=== PATIENT | male | born 1930 | race Caucasian/White ===

== ENCOUNTER 2016-02-27 10:00 | Emergency (ER) | payer MEDICARE ==
[2015-05-31 11:31] VITALS: BMI 40.1
[~2016-02-27 10:00] MED LIST: ADVIL100 M1 PO; BAYER CHEWABLE81 MG PO; DUTOPROL 50-121 EACH PO; GABAPENTIN100 MG PO; GLUCOPHAGE1000 MG PO; LASIX20 MG PO; PROSCAR5 MG PO; TRAZODONE HCL50 MG PO; ZESTORETIC 20/21 TAB PO
[2016-02-27 10:51] LABS: ALBUMIN 3.6 g/dL (3.4-5.0); ANION GAP 11.6 mmol/L (8-16); BASOPHILS 0.2 % (0.0-2.0); BILIRUBIN - TOTAL 0.7 mg/dL (0.2-1.3); CALCIUM 8.8 mg/dL (8.5-10.1); CARBON DIOXIDE 30.1 mmol/L (21.0-32.0); CREATININE - SERUM 1.3 mg/dL (0.6-1.3); EOSINOPHILS 0.7 % (0-7); HEMATOCRIT 37.1 % (42.0-54.0); HEMOGLOBIN 11.9 g/dL (13.5-17.5); IMMATURE GRANULOCYTES 0.2 % (0-5); LYMPHOCYTES 13.4 % (15-50); MCH 25.8 pg (26.0-34.0); MCHC 32.1 g/dL (31.0-37.0); MCV 80.3 fL (80.0-100.0); MEAN PLATELET VOLUME 10.7 fL (7.4-10.4); MONOCYTES 9.3 % (2-11); NEUTROPHILS 76.2 % (40-80); PLATELET COUNT 235 10x3/uL (130-400); POTASSIUM - SERUM 3.7 mmol/L (3.5-5.1); PROTEIN - SERUM 7.4 g/dL (6.4-8.2); RBC 4.62 10x6/uL (4.20-6.10); RDW 15.3 % (11.5-14.5)
== END 2016-02-27 13:01 ==
LOC: D.ER 10:00
PROVIDERS: Emergency Medicine
DX: J44.1 Chronic obstructive pulmonary disease with (acute) exacerbation (principal); J20.9 Acute bronchitis, unspecified; E11.9 Type 2 diabetes mellitus without complications; K21.9 Gastro-esophageal reflux disease without esophagitis; N18.9 Chronic kidney disease, unspecified; I12.9 Hypertensive chronic kidney disease with stage 1 through stage 4 chronic kidney disease, or unspecified chronic kidney disease; F17.200 Nicotine dependence, unspecified, uncomplicated

== ENCOUNTER 2017-07-07 13:07 | Inpatient (IN) | payer MEDICARE ==
[2017-07-07] VITALS (14 sets, daily range): BP systolic 53–136; BP diastolic 34–97
[~2017-07-07] VITALS: Ht 172.7 cm; Wt 129.9 kg
--- NOTE | ~2017-07-07 | OP ---
PATIENT NAME: TALI SHEIKH MEDICAL RECORD: [id number] :30 LOCATION:[facility] D.2307 ADMISSION DATE:07/07/17 SURGEON: YARELY ROAMN MD DATE OF OPERATION: 07/15/2017 PROCEDURE: Fiberoptic bronchoscopy. INDICATION: Mr. Sheikh is an 87-year-old gentleman who is status post cardiopulmonary arrest. Pneumonia. The patient had copious secretion yesterday and fibrotic bronchoscopy was carried out to inspect the airway for any mucus plugging and get specimen for culture and sensitivity. PROCEDURE: The fiberoptic bronchoscope was easily passed through the ET tube. The ramone was sharp. The right main bronchus was normal. The subsegment to the right upper lobe, right lower lobe, and right middle lobe within normal range. There was no endobronchial lesion seen. There were bronchitic changes that bled easily by touching by the bronchoscope when the patient was coughing. The left main bronchus was normal. The subsegment to the left upper lobe, lingula, left lower lobe within normal range. No endobronchial lesion was seen. There was also pluss-eo-vxbfqdkhp secretion. Specimen washing was obtained and sent for routine culture and sensitivity, AFB, fungus, and cytology. Overall, the patient tolerated procedure very well. MONITORING: EKG, pulse, blood pressure, SpO2 were monitored throughout the procedure. TRANSINT:[id number] Voice Confirmation ID: [id number] DOCUMENT ID: [id number] YARELY ROMAN MD at 1806 CC: [id number] DICTATION DATE: 07/15/17 1352 MECHANISM INSPECTOR: 07/15/17 1443 DIS IN 07/17/17 [address] [place] [address]
--- NOTE | ~2017-07-07 | CN ---
PATIENT NAME:TALI SHEIKH MEDICAL RECORD: [id number] : 30 LOCATION:[facility] ADMIT DATE: 07/07/17 ACCOUNT: [id number] CONSULTING PHYSICIAN: YARELY ROMAN MD REFERRING PHYSICIAN: GURWINDER GRAY MD DATE OF CONSULTATION: 07/08/2017 CONSULT REQUESTING PHYSICIAN: Gurwinder Gray MD REASON FOR CONSULTATION: Vent management. HISTORY OF PRESENT ILLNESS: Mr. Sheikh is an 87-year-old gentleman. He was admitted yesterday with acute shortness of breath, found out to be in atrial fibrillation with RVR as well as hemoglobin of 4.4. The patient was transfused with PRBC and while in the ICU, the patient coded twice and he was made DNR. Early this morning, I was called by Dr. Oquendo that patient has a large left pneumothorax. The patient was orally intubated, unresponsive and no family member available to talk. The history was taken mainly by reviewing the patient's note and talking to the nursing staff. REVIEW OF SYSTEMS: Not obtainable. PAST MEDICAL HISTORY: 1. History of TIA and neuropathy. 2. Diabetes mellitus type 2. 3. Hypertension. 4. Allergies. PAST SURGICAL HISTORY: 1. Right knee replacement. 2. Shoulder replacement surgery. ALLERGIES: No known drug allergy. MEDICATIONS: On [employer] is reviewed. PERSONAL AND SOCIAL HISTORY: He is a nondrinker. The smoking history is not known. FAMILY HISTORY: Noncontributory. PHYSICAL EXAMINATION: GENERAL: Now, the patient is orally intubated and unresponsive. VITAL SIGNS: The blood pressure is 137/75, pulse is 91, respiration is 16, temperature is 98.1, SpO2 is 98% on SIMV. HEENT: Conjunctiva is pale. Sclerae not icteric. NECK: Supple. There is no JVD. CHEST: There is a left-sided chest tube in place. There are crackles bilaterally. There is subcutaneous emphysema. HEART: Rate and rhythm regular, normal sound, no murmur. ABDOMEN: Soft. Bowel sounds are muffled. RECTAL: Deferred. EXTREMITIES: No cyanosis, no clubbing. There is 1+ pedal edema. SKIN: Warm, normal. CENTRAL NERVOUS SYSTEM: The pupil is pinpoint, the right pupil. The left is 3 CONSULT REPORT [id number] TALI SHEIKH mm and nonreactive to light. The patient does not respond to any verbal stimuli. He is not moving any extremities to painful stimuli. CHEST RADIOGRAPH: There is a large left pneumothorax, but the ET tube is in good position. LABORATORY DATA: CBC: The WBC is 17.7, hemoglobin 12.4 post-transfusion, on admission hemoglobin was 4.4, hematocrit is 37 and the platelet count is 337. Chemistry: Sodium 137, potassium is 4.1, BUN is 27, creatinine is 1.6, it has gone worse to BUN of 40, creatinine 2.3. ABG: The pH is 7.43, pCO2 is 19.2, pO2 is 23, bicarbonate is 12.9, it improved to a bicarbonate of 22.6. The lactic acid 2.51, INR is 1.41. IMPRESSION: 1. Acute hypoxic hypercapnic respiratory failure, which is multifactorial, status post cardiopulmonary arrest times 2. 2. Metabolic acidosis with lactic acidosis. 3. Large left pneumothorax with spontaneous most likely during the resuscitation. 4. Severe microcytic anemia secondary to GI bleed. 5. Atrial fibrillation. 6. Rkpsl-rp-dsbrwfb renal failure secondary to acute tubular necrosis. 7. CHF with elevated proBNP. RECOMMENDATION: 1. Continue mechanical ventilation. We will change the mode to SIMV and remove the PEEP. 2. GI bleed and DVT prophylaxis. 3. Empiric antibiotic. 4. Albuterol ipratropium nebulizer. 5. Follow up labs and chest radiograph. 6. Left-sided chest tube placement by IR. The prognosis is guarded. We will repeat the CT scan of the head tomorrow if the patient is not waking up. Dr. Gray, thank you for involving me in the care of Mr. Sheikh. The critical care time is 50 minutes. TRANSINT:[id number] Voice Confirmation ID: [id number] DOCUMENT ID: [id number] YARELY ROMAN MD at 1806 CC: [id number] DICTATION DATE: 07/08/17 1244 MUD CLEANER OPERATOR: 07/08/17 1315 DIS IN 07/17/17 [place] [id number]
--- NOTE | ~2017-07-07 | CN ---
PATIENT NAME:TALI LOPEZ MEDICAL RECORD: [id number] : 30 LOCATION:[facility]2307 ADMIT DATE: 07/07/17 ACCOUNT: [id number] CONSULTING PHYSICIAN: JANY BRYAN MD REFERRING PHYSICIAN: GURWINDER OQUENDO MD DATE OF CONSULTATION: 07/17/2017 CARDIOLOGY CONSULTATION DIAGNOSES: 1. Anemia. 2. Gastrointestinal bleed. 3. Hypovolemic shock. 4. Tachycardia. HISTORY OF PRESENT ILLNESS: This is a gentleman who presents with a GI bleed. He is having hypovolemic shock. He is on multiple pressors. His heart rate has gone up to 160. This is sinus tachycardia. He has no EKG changes with this. He continues to have the bleed and this is from an ulcer that cannot be treated. He does have a history of atrial fibrillation for which he is in sinus rhythm now. PHYSICAL EXAMINATION: GENERAL: The patient is intubated and sedated, somewhat restless. CARDIOVASCULAR: Tachycardic, irregular. Normal S1, normal S2. No S3, no S4. No murmurs. LUNGS: Overall, clear to auscultation and percussion. EXTREMITIES: Cool. Hypoperfused. No edema. OVERALL IMPRESSION: Sinus tachycardia, normal physiologic response to the severe hypovolemic shock and anemia. No other cardiac workup treatment is necessary. TRANSINT:[id number] Voice Confirmation ID: [id number] DOCUMENT ID: [id number] JANY BRYAN MD at 2248 CC: [id number] DICTATION DATE: 07/17/17 1643 DIVORCE LAWYER: 07/17/17 1824 DIS IN 07/17/17 [facility] [address] [place] [address]
[2017-07-07 13:52] LABS: BASOPHILS 0.1 % (0-2); EOSINOPHILS 0.1 % (0-7); IMMATURE GRANULOCYTES 0.4 % (0-5); LYMPHOCYTES 6.3 % (15-50); MCHC 30.3 g/dL (31.0-37.0); MCV 72.5 fL (80.0-100.0); MEAN PLATELET VOLUME 9.6 fL (7.4-10.4); MONOCYTES 5.9 % (2-11); NEUTROPHILS 87.2 % (40-80); RDW 17.5 % (11.5-14.5); WBC 13.8 10x3/uL (4.8-10.8)
[2017-07-07 13:54] LABS: PLATELET COUNT 337 10x3/uL (130-400)
[2017-07-07 13:56] LABS: HEMATOCRIT 14.5 % (42.0-54.0); HEMOGLOBIN 4.4 g/dL (13.5-17.5)
[2017-07-07 14:03] LABS: ALBUMIN 2.4 g/dL (3.4-5.0); ALKALINE PHOSPHATASE 51 U/L (46-116); ALT (SGPT) 21 U/L (10-68); BILIRUBIN - TOTAL 0.36 mg/dL (0.2-1.3); CALC OSMOLALITY 285 mosm/kg (275-300); CALCIUM 7.6 mg/dL (8.5-10.1); CHLORIDE - SERUM 103 mmol/L (98-107); CREATININE - SERUM 1.6 mg/dL (0.6-1.3); GLUCOSE 224 mg/dL (74-106); POTASSIUM - SERUM 4.1 mmol/L (3.5-5.1); PROTEIN - SERUM 5.5 g/dL (6.4-8.2); SODIUM 137 mmol/L (136-145); UREA NITROGEN 27 mg/dL (7-18); eGFR NON AFRICAN AMERICAN 44 mL/min (90-120)
[2017-07-07 14:11] LABS: CREATINE KINASE 85 UL (21-232); MAGNESIUM - SERUM 1.8 mg/dL (1.8-2.4); PRO BNP 1558 pg/mL (0-450)
[2017-07-07 14:12] LABS: TROPONIN-I < 0.017 ng/mL (0.000-0.060)
[2017-07-07 14:21] LABS: APTT 22.7 SECONDS (22.8-39.4); INR 1.27 (0.85-1.17); PROTIME 15.4 SECONDS (11.6-15.0)
[2017-07-07 15:50] LABS: APPEARANCE CLEAR (CLEAR); BILIRUBIN NEGATIVE (NEGATIVE); COLOR YELLOW (YELLOW); GLUCOSE 100 mg/dL (NEGATIVE); KETONE NEGATIVE (NEGATIVE); NITRITE NEGATIVE (NEGATIVE); PROTEIN NEGATIVE (NEGATIVE); SPECIFIC GRAVITY 1.025 (1.005-1.020); UROBILINOGEN NORMAL (NORMAL)
[2017-07-07 23:51] LABS: HEMATOCRIT 37.2 % (42.0-54.0); HEMOGLOBIN 12.5 g/dL (13.5-17.5)
[2017-07-08] VITALS (51 sets, daily range): BP systolic 85–160; BP diastolic 44–95; BMI 38.7; BMI 39.3
[2017-07-08 05:17] LABS: BASOPHILS 0.1 % (0-2); EOSINOPHILS 0 % (0-7); IMMATURE GRANULOCYTES 0.6 % (0-5); LYMPHOCYTES 7.8 % (15-50); MCH 27.4 pg (26.0-34.0); MEAN PLATELET VOLUME 9.2 fL (7.4-10.4); MONOCYTES 7.6 % (2-11); NEUTROPHILS 83.9 % (40-80); RDW 16.7 % (11.5-14.5)
[2017-07-08 05:19] LABS: HEMOGLOBIN 9.9 g/dL (13.5-17.5); MCV 83.1 fL (80.0-100.0); PLATELET COUNT 143 10x3/uL (130-400); RBC 3.61 10x6/uL (4.20-6.10); WBC 17.7 10x3/uL (4.8-10.8)
[2017-07-08 05:26] LABS: INR 1.41 (0.85-1.17); PROTIME 16.8 SECONDS (11.6-15.0)
[2017-07-08 05:34] LABS: % SATURATION 7 % (15-55); IRON 19 ug/dl (35-150); TOTAL IRON BIND CAPACITY 264 ug/dl (260-445); UNSAT IRON BIND CAPACITY 245 ug/dl (150-375)
[2017-07-08 05:52] LABS: ALBUMIN 2.3 g/dL (3.4-5.0); BILIRUBIN - TOTAL 0.77 mg/dL (0.2-1.3); POTASSIUM - SERUM 4.1 mmol/L (3.5-5.1)
[2017-07-08 05:54] LABS: ANION GAP 14.8 mmol/L (8-16); CARBON DIOXIDE 26.3 mmol/L (21.0-32.0); CREATININE - SERUM 2.3 mg/dL (0.6-1.3)
[2017-07-08 18:24] LABS: HEMATOCRIT 25.5 % (42.0-54.0); HEMOGLOBIN 8.5 g/dL (13.5-17.5)
[2017-07-08 22:35] LABS: HEMATOCRIT 27.5 % (42.0-54.0); HEMOGLOBIN 9.3 g/dL (13.5-17.5)
[2017-07-09] VITALS (26 sets, daily range): BP systolic 85–174; BP diastolic 55–98; Ht 172.7 cm; Wt 129.9 kg
[2017-07-09 04:28] LABS: BASOPHILS 0.1 % (0-2); EOSINOPHILS 0 % (0-7); HEMATOCRIT 27.9 % (42.0-54.0); HEMOGLOBIN 9.3 g/dL (13.5-17.5); IMMATURE GRANULOCYTES 0.4 % (0-5); LYMPHOCYTES 6.6 % (15-50); MCH 27.8 pg (26.0-34.0); MCHC 33.3 g/dL (31.0-37.0); MCV 83.3 fL (80.0-100.0); MEAN PLATELET VOLUME 9.3 fL (7.4-10.4); MONOCYTES 11.1 % (2-11); NEUTROPHILS 81.8 % (40-80); PLATELET COUNT 129 10x3/uL (130-400); RBC 3.35 10x6/uL (4.20-6.10); RDW 17.7 % (11.5-14.5); WBC 12.9 10x3/uL (4.8-10.8)
[2017-07-09 04:55] LABS: ALBUMIN 2.1 g/dL (3.4-5.0); ANION GAP 17.7 mmol/L (8-16); BILIRUBIN - TOTAL 0.57 mg/dL (0.2-1.3); CARBON DIOXIDE 22.1 mmol/L (21.0-32.0); POTASSIUM - SERUM 3.8 mmol/L (3.5-5.1); PROTEIN - SERUM 5.1 g/dL (6.4-8.2)
[2017-07-09 05:01] LABS: CALCIUM 6.9 mg/dL (8.5-10.1); CREATININE - SERUM 3.7 mg/dL (0.6-1.3)
[2017-07-09 09:46] LABS: FOLATE (FOLIC ACID) - SERUM 10.9 ng/mL (>3.0)
[2017-07-09 15:25] LABS: HEMATOCRIT 25.7 % (42.0-54.0); HEMOGLOBIN 8.6 g/dL (13.5-17.5)
[2017-07-09 22:05] LABS: HEMATOCRIT 27.9 % (42.0-54.0); HEMOGLOBIN 9.3 g/dL (13.5-17.5)
[2017-07-10] VITALS (24 sets, daily range): BP systolic 121–155; BP diastolic 68–94
[2017-07-10 03:53] LABS: BASOPHILS 0.1 % (0-2); EOSINOPHILS 0.3 % (0-7); HEMATOCRIT 28.2 % (42.0-54.0); HEMOGLOBIN 9.4 g/dL (13.5-17.5); IMMATURE GRANULOCYTES 1.2 % (0-5); LYMPHOCYTES 8.9 % (15-50); MCH 28.1 pg (26.0-34.0); MCHC 33.3 g/dL (31.0-37.0); MCV 84.2 fL (80.0-100.0); MEAN PLATELET VOLUME 9.6 fL (7.4-10.4); MONOCYTES 12.1 % (2-11); NEUTROPHILS 77.4 % (40-80); PLATELET COUNT 116 10x3/uL (130-400); RBC 3.35 10x6/uL (4.20-6.10); RDW 17.7 % (11.5-14.5); WBC 11.8 10x3/uL (4.8-10.8)
[2017-07-10 04:02] LABS: ALBUMIN 1.9 g/dL (3.4-5.0); ANION GAP 15.6 mmol/L (8-16); BILIRUBIN - TOTAL 0.68 mg/dL (0.2-1.3); CARBON DIOXIDE 23.8 mmol/L (21.0-32.0); POTASSIUM - SERUM 3.4 mmol/L (3.5-5.1); PROTEIN - SERUM 4.9 g/dL (6.4-8.2)
[2017-07-10 04:10] LABS: CALCIUM 6.9 mg/dL (8.5-10.1)
[2017-07-10 14:41] LABS: HEMATOCRIT 28.6 % (42.0-54.0); HEMOGLOBIN 9.2 g/dL (13.5-17.5)
[2017-07-10 22:39] LABS: HEMATOCRIT 28.5 % (42.0-54.0); HEMOGLOBIN 9.5 g/dL (13.5-17.5)
[2017-07-11] VITALS (24 sets, daily range): BP systolic 117–156; BP diastolic 61–88
[2017-07-11 05:46] LABS: BASOPHILS 0.1 % (0-2); HEMATOCRIT 27.3 % (42.0-54.0); HEMOGLOBIN 8.9 g/dL (13.5-17.5); IMMATURE GRANULOCYTES 1.1 % (0-5); MCH 27.7 pg (26.0-34.0); MCHC 32.6 g/dL (31.0-37.0); MEAN PLATELET VOLUME 9.1 fL (7.4-10.4); NEUTROPHILS 81.8 % (40-80); PLATELET COUNT 108 10x3/uL (130-400); RBC 3.21 10x6/uL (4.20-6.10); RDW 18.1 % (11.5-14.5); WBC 10.2 10x3/uL (4.8-10.8)
[2017-07-11 05:51] LABS: ANION GAP 19.7 mmol/L (8-16); BILIRUBIN - TOTAL 0.66 mg/dL (0.2-1.3); CARBON DIOXIDE 19.5 mmol/L (21.0-32.0); CREATININE - SERUM 3.8 mg/dL (0.6-1.3); POTASSIUM - SERUM 4.2 mmol/L (3.5-5.1); PROTEIN - SERUM 4.3 g/dL (6.4-8.2)
[2017-07-11 06:00] LABS: CALCIUM 6.7 mg/dL (8.5-10.1)
[2017-07-11 07:51] LABS: MAGNESIUM - SERUM 1.9 mg/dL (1.8-2.4); PHOSPHOROUS 4.7 mg/dL (2.5-4.9)
[2017-07-11 15:21] LABS: HEMATOCRIT 28.1 % (42.0-54.0); HEMOGLOBIN 9.1 g/dL (13.5-17.5)
[2017-07-11 22:47] LABS: HEMATOCRIT 28.7 % (42.0-54.0); HEMOGLOBIN 9.3 g/dL (13.5-17.5)
[2017-07-12] VITALS (24 sets, daily range): BP systolic 124–148; BP diastolic 65–83
[2017-07-12 05:02] LABS: BASOPHILS 0.1 % (0-2); EOSINOPHILS 3.2 % (0-7); HEMATOCRIT 28.7 % (42.0-54.0); HEMOGLOBIN 9.3 g/dL (13.5-17.5); IMMATURE GRANULOCYTES 1.9 % (0-5); LYMPHOCYTES 8.3 % (15-50); MCH 27.5 pg (26.0-34.0); MCHC 32.4 g/dL (31.0-37.0); MCV 84.9 fL (80.0-100.0); MEAN PLATELET VOLUME 9.6 fL (7.4-10.4); MONOCYTES 10.1 % (2-11); NEUTROPHILS 76.4 % (40-80); PLATELET COUNT 121 10x3/uL (130-400); RBC 3.38 10x6/uL (4.20-6.10); RDW 18.1 % (11.5-14.5); WBC 10.6 10x3/uL (4.8-10.8)
[2017-07-12 05:15] LABS: INR 1.14 (0.85-1.17); PROTIME 14.2 SECONDS (11.6-15.0)
[2017-07-12 05:18] LABS: ANION GAP 14.1 mmol/L (8-16); BILIRUBIN - TOTAL 0.7 mg/dL (0.2-1.3); CREATININE - SERUM 3.5 mg/dL (0.6-1.3); POTASSIUM - SERUM 4.1 mmol/L (3.5-5.1); PROTEIN - SERUM 4.9 g/dL (6.4-8.2)
[2017-07-12 13:31] LABS: HEMATOCRIT 26.2 % (42.0-54.0); HEMOGLOBIN 8.7 g/dL (13.5-17.5)
[2017-07-12 14:49] LABS: HEMOGLOBIN 9.5 g/dL (13.5-17.5)
[2017-07-13] VITALS (24 sets, daily range): BP systolic 124–147; BP diastolic 62–76
[2017-07-13 04:17] LABS: BASOPHILS 0.2 % (0-2); EOSINOPHILS 3.3 % (0-7); HEMATOCRIT 28.6 % (42.0-54.0); HEMOGLOBIN 9.4 g/dL (13.5-17.5); IMMATURE GRANULOCYTES 2.3 % (0-5); LYMPHOCYTES 7.7 % (15-50); MCHC 32.9 g/dL (31.0-37.0); MCV 85.1 fL (80.0-100.0); MEAN PLATELET VOLUME 9.4 fL (7.4-10.4); MONOCYTES 9.1 % (2-11); NEUTROPHILS 77.4 % (40-80); PLATELET COUNT 140 10x3/uL (130-400); RBC 3.36 10x6/uL (4.20-6.10); WBC 10.5 10x3/uL (4.8-10.8)
[2017-07-13 04:32] LABS: CALCIUM 7.1 mg/dL (8.5-10.1); CARBON DIOXIDE 21.9 mmol/L (21.0-32.0); CREATININE - SERUM 3.5 mg/dL (0.6-1.3); POTASSIUM - SERUM 3.9 mmol/L (3.5-5.1)
[2017-07-13 11:30] LABS: HEMATOCRIT 29.1 % (42.0-54.0); HEMOGLOBIN 9.6 g/dL (13.5-17.5)
[2017-07-14] VITALS (24 sets, daily range): BP systolic 107–148; BP diastolic 58–80
[2017-07-14 05:10] LABS: ANION GAP 15.8 mmol/L (8-16); CALCIUM 7.5 mg/dL (8.5-10.1); CARBON DIOXIDE 21.9 mmol/L (21.0-32.0); CREATININE - SERUM 3.3 mg/dL (0.6-1.3); POTASSIUM - SERUM 3.7 mmol/L (3.5-5.1)
[2017-07-14 06:11] LABS: BASOPHILS 0.1 % (0-2); EOSINOPHILS 2.7 % (0-7); HEMATOCRIT 30.4 % (42.0-54.0); HEMOGLOBIN 9.9 g/dL (13.5-17.5); IMMATURE GRANULOCYTES 2.1 % (0-5); LYMPHOCYTES 7.7 % (15-50); MCH 27.7 pg (26.0-34.0); MCHC 32.6 g/dL (31.0-37.0); MCV 84.9 fL (80.0-100.0); MEAN PLATELET VOLUME 9.6 fL (7.4-10.4); MONOCYTES 9.4 % (2-11); PLATELET COUNT 162 10x3/uL (130-400); RBC 3.58 10x6/uL (4.20-6.10); RDW 17.8 % (11.5-14.5); WBC 10.2 10x3/uL (4.8-10.8)
[2017-07-15] VITALS (30 sets, daily range): BP systolic 74–144; BP diastolic 45–81
[2017-07-15 04:47] LABS: BASOPHILS 0.1 % (0-2); EOSINOPHILS 2.1 % (0-7); HEMATOCRIT 29.6 % (42.0-54.0); HEMOGLOBIN 9.7 g/dL (13.5-17.5); IMMATURE GRANULOCYTES 1.9 % (0-5); LYMPHOCYTES 8.7 % (15-50); MCH 27.8 pg (26.0-34.0); MCHC 32.8 g/dL (31.0-37.0); MCV 84.8 fL (80.0-100.0); MEAN PLATELET VOLUME 9.7 fL (7.4-10.4); MONOCYTES 8.3 % (2-11); NEUTROPHILS 78.9 % (40-80); PLATELET COUNT 185 10x3/uL (130-400); RBC 3.49 10x6/uL (4.20-6.10); RDW 17.9 % (11.5-14.5); WBC 9.8 10x3/uL (4.8-10.8)
[2017-07-15 05:10] LABS: ANION GAP 15.1 mmol/L (8-16); CALCIUM 7.4 mg/dL (8.5-10.1); CARBON DIOXIDE 20.5 mmol/L (21.0-32.0); CREATININE - SERUM 3.1 mg/dL (0.6-1.3); POTASSIUM - SERUM 3.6 mmol/L (3.5-5.1)
[2017-07-16] VITALS (38 sets, daily range): BP systolic 94–149; BP diastolic 53–95
[2017-07-16 06:32] LABS: BASOPHILS 0.1 % (0-2); EOSINOPHILS 0.2 % (0-7); IMMATURE GRANULOCYTES 1.1 % (0-5); LYMPHOCYTES 7.5 % (15-50); MCH 27.6 pg (26.0-34.0); MCHC 32.4 g/dL (31.0-37.0); MEAN PLATELET VOLUME 9.7 fL (7.4-10.4); MONOCYTES 8.2 % (2-11); NEUTROPHILS 82.9 % (40-80); RDW 18.4 % (11.5-14.5); WBC 10.5 10x3/uL (4.8-10.8)
[2017-07-16 06:36] LABS: ANION GAP 15.5 mmol/L (8-16); CALCIUM 7.2 mg/dL (8.5-10.1); CARBON DIOXIDE 20.4 mmol/L (21.0-32.0); CREATININE - SERUM 3.1 mg/dL (0.6-1.3); POTASSIUM - SERUM 3.9 mmol/L (3.5-5.1)
[2017-07-16 07:04] LABS: HEMATOCRIT 21.6 % (42.0-54.0); PLATELET COUNT 255 10x3/uL (130-400); RBC 2.54 10x6/uL (4.20-6.10)
[2017-07-16 21:08] LABS: AFB SPECIMEN PROCESSING Concentration (())
[2017-07-16 21:57] LABS: HEMATOCRIT 27.4 % (42.0-54.0); HEMOGLOBIN 8.8 g/dL (13.5-17.5)
[2017-07-17] VITALS (25 sets, daily range): BP systolic 51–154; BP diastolic 0–81
[2017-07-17 04:31] LABS: BASOPHILS 0.2 % (0-2); EOSINOPHILS 0.2 % (0-7); HEMATOCRIT 26.9 % (42.0-54.0); HEMOGLOBIN 8.8 g/dL (13.5-17.5); LYMPHOCYTES 8.4 % (15-50); MCH 27.1 pg (26.0-34.0); MCHC 32.7 g/dL (31.0-37.0); MCV 82.8 fL (80.0-100.0); MEAN PLATELET VOLUME 9.4 fL (7.4-10.4); NEUTROPHILS 79.2 % (40-80); PLATELET COUNT 229 10x3/uL (130-400); RBC 3.25 10x6/uL (4.20-6.10); RDW 17.4 % (11.5-14.5); WBC 9.8 10x3/uL (4.8-10.8)
[2017-07-17 04:43] LABS: ANION GAP 14.9 mmol/L (8-16); CALCIUM 7.6 mg/dL (8.5-10.1); CARBON DIOXIDE 23.1 mmol/L (21.0-32.0); CREATININE - SERUM 3.2 mg/dL (0.6-1.3)
[2017-07-17 05:41] LABS: HEMATOCRIT 27.6 % (42.0-54.0); HEMOGLOBIN 9.1 g/dL (13.5-17.5)
[2017-07-17 08:38] LABS: PHOSPHOROUS 4.7 mg/dL (2.5-4.9)
[2017-07-17 10:40] LABS: HEMATOCRIT 27.1 % (42.0-54.0); HEMOGLOBIN 8.9 g/dL (13.5-17.5)
[2017-07-17 13:17] LABS: FUNGUS STAIN Final report (())
[2017-07-17 15:26] LABS: BASOPHILS 0.2 % (0-2); EOSINOPHILS 0.3 % (0-7); HEMATOCRIT 23.1 % (42.0-54.0); IMMATURE GRANULOCYTES 0.6 % (0-5); LYMPHOCYTES 13.9 % (15-50); MCH 27.6 pg (26.0-34.0); MCHC 32.5 g/dL (31.0-37.0); MEAN PLATELET VOLUME 9.7 fL (7.4-10.4); MONOCYTES 8.6 % (2-11); NEUTROPHILS 76.4 % (40-80); RBC 2.72 10x6/uL (4.20-6.10); RDW 18.1 % (11.5-14.5); WBC 13.9 10x3/uL (4.8-10.8)
[2017-07-17 15:27] LABS: HEMOGLOBIN 7.5 g/dL (13.5-17.5); MCV 84.9 fL (80.0-100.0); PLATELET COUNT 299 10x3/uL (130-400)
[2017-07-17 15:37] LABS: ANION GAP 16.7 mmol/L (8-16); CALCIUM 7.1 mg/dL (8.5-10.1); CARBON DIOXIDE 20.6 mmol/L (21.0-32.0); CREATININE - SERUM 3.1 mg/dL (0.6-1.3); POTASSIUM - SERUM 4.3 mmol/L (3.5-5.1)
[2017-07-17 16:10] LABS: APTT 29.9 SECONDS (22.8-39.4); INR 1.5 (0.85-1.17); PROTIME 17.6 SECONDS (11.6-15.0)
[2017-07-17 16:20] LABS: HEMATOCRIT 32.5 % (42.0-54.0); HEMOGLOBIN 10.5 g/dL (13.5-17.5)
[2017-07-22 14:24] LABS: FUNGUS CULTURE RESULT 1 Candida albicans (())
[2017-08-12 06:15] LABS: FUNGUS MYCOLOGY CULTURE Final report (())
[2017-09-04 13:20] LABS: ACID FAST CULTURE Negative (()); ACID FAST SMEAR Negative (())
== END 2017-07-17 18:15 | disposition hospice, inpatient (51) | DRG 207 ==
LOC: D.ER 13:07 → D.ICU 17:01 → D.MS 17:01 → D.ICU 19:34
PROVIDERS: Family Medicine; Internal Medicine Gastroenterology; Internal Medicine Nephrology; Internal Medicine Pulmonary Disease
PROC: 0BH17EZ Insertion of Endotracheal Airway into Trachea, Via Natural or Artificial Opening (ICD-10-PCS; 2017-07-07)
PROC: 5A1955Z Respiratory Ventilation, Greater than 96 Consecutive Hours (ICD-10-PCS; 2017-07-07)
PROC: 0W9B30Z Drainage of Left Pleural Cavity with Drainage Device, Percutaneous Approach (ICD-10-PCS; 2017-07-07)
PROC: 05HY33Z Insertion of Infusion Device into Upper Vein, Percutaneous Approach (ICD-10-PCS; 2017-07-08)
PROC: 0DJ08ZZ Inspection of Upper Intestinal Tract, Via Natural or Artificial Opening Endoscopic (ICD-10-PCS; principal; 2017-07-09 16:00)
PROC: 0W3P8ZZ Control Bleeding in Gastrointestinal Tract, Via Natural or Artificial Opening Endoscopic (ICD-10-PCS; 2017-07-16)
PROC: 05HY33Z Insertion of Infusion Device into Upper Vein, Percutaneous Approach (ICD-10-PCS; 2017-07-16)
DX: J96.02 Acute respiratory failure with hypercapnia (principal); I46.9 Cardiac arrest, cause unspecified; N17.0 Acute kidney failure with tubular necrosis; R57.1 Hypovolemic shock; K25.4 Chronic or unspecified gastric ulcer with hemorrhage; R40.2313 Coma scale, best motor response, none, at hospital admission; R40.2113 Coma scale, eyes open, never, at hospital admission; R40.2213 Coma scale, best verbal response, none, at hospital admission; D62 Acute posthemorrhagic anemia; I13.0 Hypertensive heart and chronic kidney disease with heart failure and stage 1 through stage 4 chronic kidney disease, or unspecified chronic kidney disease; J44.1 Chronic obstructive pulmonary disease with (acute) exacerbation; J93.9 Pneumothorax, unspecified; K92.2 Gastrointestinal hemorrhage, unspecified; E87.2 Acidosis; J93.83 Other pneumothorax; J96.01 Acute respiratory failure with hypoxia; Z66 Do not resuscitate; E11.22 Type 2 diabetes mellitus with diabetic chronic kidney disease; N18.9 Chronic kidney disease, unspecified; I50.9 Heart failure, unspecified; D50.9 Iron deficiency anemia, unspecified; I48.91 Unspecified atrial fibrillation; R00.1 Bradycardia, unspecified

== ENCOUNTER 2017-07-17 18:15 | Inpatient (IN) | payer OTHER ==
[~2017-07-17] VITALS: Ht 172.7 cm; Wt 130.8 kg
[2017-07-17 21:30] VITALS: BP 87/46; Ht 172.7 cm; Wt 130.8 kg
[2017-07-17 21:50] VITALS: BP 87/46
[2017-07-17 23:00] VITALS: BP 79/42
[2017-07-18 03:00] VITALS: BP 92/51
[2017-07-18 07:00] VITALS: BP 72/62
[2017-07-18 08:00] VITALS: BP 77/26
[2017-07-18 11:00] VITALS: BP 84/49
[2017-07-18 15:00] VITALS: BP 83/42
[2017-07-18 21:06] VITALS: BP 99/50
[2017-07-19 08:13] VITALS: BP 152/64
[2017-07-19 12:04] VITALS: BP 117/53
[2017-07-19 22:00] VITALS: BP 108/50
[2017-07-20 07:51] VITALS: BP 102/60
[2017-07-20 20:00] VITALS: BP 110/36
== END 2017-07-21 08:15 | DRG 951 ==
LOC: D.ICU 18:15 → D.M2 18:15
DX: Z51.5 Encounter for palliative care (principal)